=== PATIENT | male | born 1955 | race Asian ===

== ENCOUNTER 2018-03-10 12:25 | Emergency (ER) | payer MEDICAID ==
[~2018-03-10] VITALS: Ht 160 cm; Wt 70.0 kg
[2018-03-10] MEDS ORDERED: FAMOTIDINE 20MG TABLET PO ONE (13:00)
[2018-03-10] MEDS ORDERED: METHYLPREDNISOLONE SOD SUCC 125 MG/2 ML VIAL IM ONE (13:00)
[2018-03-10 14:06] VITALS: BP 158/79
== END 2018-03-10 14:10 | disposition home or self-care (01) ==
LOC: ER 12:25
DX: L30.9 Dermatitis, unspecified (principal); I10 Essential (primary) hypertension
CPT/HCPCS: 96372; 99283; J2930

== ENCOUNTER 2018-03-19 16:01 | Emergency (ER) | payer MEDICAID ==
[~2018-03-19] VITALS: Ht 160 cm; Wt 69.0 kg
[2018-03-19] MEDS ORDERED: DIPHENHYDRAMINE 50MG/ML VIAL IM ONE (19:30)
[2018-03-19 20:44] VITALS: BP 164/100
== END 2018-03-19 20:48 | disposition home or self-care (01) ==
LOC: ER 16:01
DX: L27.2 Dermatitis due to ingested food (principal); I10 Essential (primary) hypertension; Z91.018 Allergy to other foods
CPT/HCPCS: 96372; 99283; J1200

== ENCOUNTER 2018-10-28 14:40 | Emergency (ER) | payer MEDICAID ==
[~2018-10-28] VITALS: Ht 160 cm; Wt 82.0 kg
[2018-10-28 15:16] VITALS: BP 123/64
[2018-10-28] MEDS ORDERED: METHYLPREDNISOLONE SOD SUCC 125 MG/2 ML VIAL IM ONE (16:30)
== END 2018-10-28 17:47 | disposition home or self-care (01) ==
LOC: ER 14:40
DX: L30.9 Dermatitis, unspecified (principal); I10 Essential (primary) hypertension
CPT/HCPCS: 96372; 99283; J2930

== ENCOUNTER 2018-11-08 07:09 | Emergency (ER) | payer MEDICAID ==
[~2018-11-08] VITALS: Ht 160 cm; Wt 69.0 kg
[2018-11-08] MEDS ORDERED: DIPHENHYDRAMINE 25MG CAPSULE PO ONE ×2 (08:15→08:30)
[2018-11-08 09:00] VITALS: BP 121/61
== END 2018-11-08 09:05 | disposition home or self-care (01) ==
LOC: ER 07:27
DX: L30.9 Dermatitis, unspecified (principal); L29.8 Other pruritus; L53.8 Other specified erythematous conditions; I10 Essential (primary) hypertension
CPT/HCPCS: 99283; Q0163